=== PATIENT | male | born 1975 | race Caucasian/White ===

== ENCOUNTER 2016-12-15 09:19 | Day surgery (SDC) | payer OTHER ==
[~2016-12-15 09:19] MED LIST: BACTRIM DS 8001 TAB PO; KEFLEX 500MG.500 MG PO; PHENERGAN 25MG.25 M1 PO; PREDNISONE 20MG20 MG PO; TESSALON PERLE100 MG PO; VIBRAMYCIN 100100 MG PO
--- NOTE | 2016-12-15 11:22 | Operative Note ---
Colonoscopy ([facility]) Procedure date: 12/15/16 Date of : 77 Procedure:Colonoscopy Colonoscopy with cold biopsy and hemorrhoidal band ligation Indications: Mr. Strickland is a 41-year-old gentleman who is here for diagnostic colonoscopy. He has had some rectal bleeding and rectal pain. He has had some external hemorrhoids as early as 1997. Over the last year, he has had more problems with a scalding feeling in the anorectal region with defecation. He has a burning and tearing sensation. He does have some excessive wiping. He still reports soft stools. Since his initial visit with me on October 30, 2016, he has taken Konsyl regularly. He reports no weight loss or family history of colon cancer. Performing Provider: Oriana Broderick MD Referrring Provider: None Sedation: Fentanyl 200 mg IV/Versed 7 mg IV Procedure: Prior to the procedure, a history and physical exam was performed, and patient medications and allergies were reviewed. The risks and benefits of the procedure and the sedation options and risks were discussed with the patient. All questions were answered and informed consent was obtained. Patient identification and proposed procedure were verified by the physician and the nurse. The patient was placed in a left lateral decubitus position. Throughout the procedure, the patient's blood pressure, pulse, and oxygen saturations were monitored continuously. Findings: On digital rectal examination there was normal rectal tone. There was an external tag in the posterior midline with healed anal fissure. The colonoscope was introduced through the anal canal to the rectum and advanced to the cecum. The ileocecal valve and appendiceal orifice were identified. The scope was advanced a short distance into the ileum which appeared grossly normal. There was some lymphoid hyperplasia and there was a larger lymphoid nodule that was biopsied using cold biopsy forceps. The scope was then withdrawn into the colon. The cecum, ascending and transverse colon and mucosa were grossly normal. There were very mild scattered diverticuli throughout the descending and sigmoid colon (LEFT colon). The rectum itself was normal. Upon retroflexion within the rectum there were grade 2-3 internal hemorrhoids. The hemorrhoids were banded using 3 bands with excellent ligation effect. There were 3 large columns of grade 2-3 internal hemorrhoids that were banded. Impressions: 1. Ileal lymphoid hyperplasia 2. Mild left-sided diverticulosis 3. Grade 2-3 internal hemorrhoids status post band ligation 3 4. Healed posterior midline anal fissure with external tag Recommendations: I will discuss the findings with the patient and family. I would recommend continuation of fiber bulk supplementation with Konsyl powder daily on a long- term maintenance basis. I will follow up the biopsy. Complications: None EBL (ml): 0 at 1121
[2016-12-15 15:14] VITALS: BP 149/84
== END 2016-12-15 12:15 | disposition home or self-care (01) ==
LOC: SDC 09:19
PROVIDERS: Internal Medicine Gastroenterology
PROC: 06LY4CC Occlusion of Hemorrhoidal Plexus with Extraluminal Device, Percutaneous Endoscopic Approach (ICD-10-PCS; 2016-12-15)
PROC: 0DBB8ZX Excision of Ileum, Via Natural or Artificial Opening Endoscopic, Diagnostic (ICD-10-PCS; principal; 2016-12-15 10:30)
DX: K57.30 Diverticulosis of large intestine without perforation or abscess without bleeding (principal); K64.2 Third degree hemorrhoids; K63.5 Polyp of colon; K62.89 Other specified diseases of anus and rectum